=== PATIENT | male | born 1960 | race Caucasian/White ===

== ENCOUNTER → 2017-08-26 | Outpatient (CLI) | payer OTHER | LOC: FIMAGING 08:52 → EDSTATUS 08:55 | PROVIDERS: ATTEND Family Medicine | DX: M25.531 Pain in right wrist (principal) ==

== ENCOUNTER 2018-05-25 08:21 | Emergency (ER) | payer OTHER ==
[2018-05-25] MEDS ORDERED: LORazepam 2 MG/ML INJ IVP ONE (09:07)
[2018-05-25] MEDS ORDERED: ASPIRIN 81 MG CHEWABLE TAB PO ONE (09:07)
[2018-05-25 09:19] LABS: PLATELET COUNT 262 10^3/uL (150-400)
--- NOTE | 2018-05-25 09:25 | EDPHY ---
H & P Stated Complaint: anxiety Time Seen by Provider: 05/25/18 08:49 HPI/ROS: CHIEF COMPLAINT: "I am racing", "heavy chest" HISTORY OF PRESENT ILLNESS: 57-year-old male with history of depression anxiety , states that he did not sleep well last evening in due to acute anxiety and a dull chest ache which he describes primarily secondary to recent house remodeling projects for which he did not get a City permit and last evening realize the potential precautions of not getting a permit. He denies history of cardiac disease beyond hyperlipidemia. He is complaining since approximately midnight of a dull chest ache without radiation. With no dyspnea. No syncope or near syncope. No illicit drug use. Nonsmoker. PRIMARY CARE PROVIDER: [facility] REVIEW OF SYSTEMS: 10 systems reviewed and negative with the exception of the elements mentioned in the history of present illness PAST MEDICAL & SURGICAL HISTORY: hyperlipidemia. SOCIAL HISTORY: . Nonsmoker. No drug use. No cocaine use. FAMILY HISTORY: No no family history of premature coronary artery disease PHYSICAL EXAM (Prior to examination, patient consented to physical exam, hands were washed and my usual and customary physical exam procedures followed) 1) GENERAL: Well-developed, well-nourished, alert and oriented. Appears anxious 2) HEAD: Normocephalic, atraumatic 3) HEENT: Pupils equal, round, reactive to light bilaterally. Sclera anicteric. Nasopharynx, oropharynx, clear, no lesions. MoistDry mucous membranes. Ears bilaterally with normal tympanic membranes. 4) NECK: Full range of motion, no meningeal signs. 5) LUNGS: Clear auscultation bilaterally, no wheezes, no rhonchi, no retractions. 6) HEART: Regular rate and rhythm, no murmur, no heave, no gallop. 7) ABDOMEN: No guarding, no rebound, no focal tenderness, negative McBurney's, negative Gonzalez's, negative Rovsing's, negative peritoneal sign, 8) MUSCULOSKELETAL: Moving all extremities, no focal areas of tenderness, no obvious trauma. No peripheral edema or discoloration. Negative Homans no palpable cord 9) BACK: No CVA tenderness, no midline vertebral tenderness, no fluctuance, no step-off, no obvious trauma, no visual or palpable abnormality. 10) SKIN: No rash, no petechiae. 11) Psychiatric: Patient is oriented X 3, there is no agitation. DIFFERENTIAL DIAGNOSIS: In no particular order, including but not limited to myocardial ischemia, pulmonary embolus, chest wall pain, pleural inflammation and pulmonary infectious causes. - Personal History Current Tetanus/Diphtheria Vaccine: Yes Current Tetanus Diphtheria and Acellular Pertussis (TDAP): Yes - Medical/Surgical History Hx Asthma: No Hx Chronic Respiratory Disease: No Hx Diabetes: No Hx Cardiac Disease: No Hx Renal Disease: No Hx Cirrhosis: No Hx Alcoholism: No Hx HIV/AIDS: No Hx Splenectomy or Spleen Trauma: No Other PMH: Hyperlipidemia, kidney stone - Social History Smoking Status: Never smoked Constitutional: Initial Vital Signs Temperature (C) 36.8 C 05/25/18 08:24 Heart Rate 83 05/25/18 08:24 Respiratory Rate 16 05/25/18 08:24 Blood Pressure 146/92 H 05/25/18 08:24 O2 Sat (%) 97 05/25/18 08:24 O2 Delivery Mode Room Air Allergies/Adverse Reactions: acetaminophen [From Percocet] Allergy (Verified 05/25/18 08:24) oxycodone [From Percocet] Allergy (Verified 05/25/18 08:24) Home Medications: Medication Instructions Recorded Atorvastatin Calcium 05/25/18 LORazepam [Ativan 1 mg (RX)] 1 mg PO Q6 PRN #5 tab 05/25/18 Medical Decision Making - Diagnostics Imaging Results: Images reviewed myself ED Course/Re-evaluation: Care of patient under supervision of secondary supervising physician Dr Sprague with whom I discussed case. 11:20 a.m.: Re-evaluation, patient is sleeping. Heart pathway score is low. Likely discussed with the patient regarding Heart pathway and MACE with the next 1 month. Have offered admission which she declines. He thinks that he can be discharged home a she thinks is symptoms more likely secondary to acute anxiety. I will provide him a small prescription for Ativan. He feels comfortable being discharged. - Data Points Laboratory Results: Laboratory Results 05/25/18 09:10 05/25/18 09:10 Medications Given: Discontinued Medications Aspirin (Aspirin) 324 mg PO EDNOW ONE Stop: 05/25/18 09:08 Last Admin: 05/25/18 09:26 Dose: 324 mg Lorazepam (Ativan Injection) 1 mg IVP EDNOW ONE Stop: 05/25/18 09:08 Last Admin: 05/25/18 09:27 Dose: 1 mg Point of Care Test Results: Chemistry 05/25/18 09:10 POC Troponin I 0.01 ng/mL ng/mL (0.00-0.08) Departure - Departure Disposition: Home, Routine, Self-Care Clinical Impression: Anxiety Chest pain Qualifiers: Chest pain type: other chest pain Qualified Code(s): R07.89 - Other chest pain ; R07.8 - Other chest pain Condition: Good Instructions: Chest Pain (ED), Anxiety (ED) Additional Instructions: Seek medical attention if you develop new or worsening chest pain, if you develop new or worsening shortness of breath, or any other symptoms that concern you. Referrals: Sudhir Zuniga MD [Primary Care Provider] - 1-2 days without fail Prescriptions: LORazepam [Ativan 1 mg (RX)] 1 mg PO Q6 PRN #5 tab PRN Reason: Anxiety
[2018-05-25 11:47] VITALS: BP 133/76
--- NOTE | 2018-05-25 15:21 | CPEKG ---
Test Reason : OPEN Blood Pressure : / mmHG Vent. Rate : 070 BPM Atrial Rate : 070 BPM P-R Int : 173 ms QRS Dur : 106 ms QT Int : 393 ms P-R-T Axes : 041 045 049 degrees QTc Int : 425 ms Sinus rhythm Confirmed by Ludivina Allen ([id number]) on 05/25/2018 3:20:43 PM Referred By: LUDIVINA ALLEN Confirmed By:Ludivina Allen
== END 2018-05-25 11:47 | disposition home or self-care (01) ==
DX: F41.9 Anxiety disorder, unspecified (principal); R07.89 Other chest pain; E78.5 Hyperlipidemia, unspecified
CPT/HCPCS: 84484-ER; 96374; J2060